=== PATIENT | female | born 2005 | race Caucasian/White ===

== ENCOUNTER 2025-03-11 21:07 | Emergency (ER) | payer OTHER ==
[~2025-03-11] VITALS: Ht 162.6 cm; Wt 56.0 kg
[2025-03-11 21:21] VITALS: O2SAT 97
[2025-03-11 21:23] VITALS: BP 144/89; PULSE 108; RESP 18; TEMP 36.8; O2SAT 97
== END 2025-03-11 22:11 | disposition left against medical advice (07) ==
LOC: ER 21:07
DX: R06.02 Shortness of breath (principal); Z53.21 Procedure and treatment not carried out due to patient leaving prior to being seen by health care provider
CPT/HCPCS: 71045